=== PATIENT | male | born 1970 | race Caucasian/White ===

== ENCOUNTER 2017-01-10 18:36 | Emergency (ER) | payer SELFPAY ==
[2017-01-10 18:42] VITALS: BP 189/124; BMI 29.4
[2017-01-10] MEDS ORDERED: TORADOL 60 MG VIAL IM ONE (19:52)
[2017-01-10] MEDS ORDERED: TORADOL 60 MG VIAL ONE (19:55)
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
== END 2017-01-10 20:57 | disposition home or self-care (01) ==
LOC: ER 18:47
DX: S40.012A Contusion of left shoulder, initial encounter (principal); M54.2 Cervicalgia; M62.838 Other muscle spasm; V89.2XXA Person injured in unspecified motor-vehicle accident, traffic, initial encounter
CPT/HCPCS: 72125; 73030; 96372; 99283; J1885

== ENCOUNTER 2017-07-27 02:35 | Emergency (ER) | payer OTHER ==
[2017-07-27 02:42] VITALS: BMI 27.2
[2017-07-27] MEDS ORDERED: TORADOL 60 MG VIAL IM ONE (02:45)
[2017-07-27] MEDS ORDERED: CATAPRES TAB 0.2 MG PO ONE (02:45)
[2017-07-27] MEDS ORDERED: NORFLEX INJ IM ONE (02:45)
[2017-07-27] MEDS ORDERED: TORADOL 60 MG VIAL ONE (02:46)
[2017-07-27] MEDS ORDERED: NORFLEX INJ ONE (02:46)
[2017-07-27] MEDS ORDERED: CATAPRES TAB 0.2 MG ONE (02:47)
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
[2017-07-27 04:42] VITALS: BP 146/101
== END 2017-07-27 04:42 | disposition home or self-care (01) ==
LOC: ER 02:35
DX: S83.92XA Sprain of unspecified site of left knee, initial encounter (principal); I10 Essential (primary) hypertension; Y93.55 Activity, bike riding; W19.XXXA Unspecified fall, initial encounter; Y92.9 Unspecified place or not applicable
CPT/HCPCS: 29530; 73560; 96372; 99282; 99283; J1885; J2360